=== PATIENT | female | born 1960 | race Two or more races ===

== ENCOUNTER 2017-11-10 23:52 | Emergency (ER) | payer BC ==
[2017-11-11 00:22] LABS: ADD MAN DIFF? NO
[2017-11-11 00:25] LABS: BASO # 0.1 x10^3/uL (0.0-0.2); BASO % 1 % (0-3); EOS # 0.1 x10^3/uL (0.0-0.7); EOS % 2 % (0-3); HEMATOCRIT 38.9 % (36.0-47.0); HEMOGLOBIN 13.4 g/dL (12.0-15.5); LYMPH # 2.2 x10^3/uL (1.0-4.8); LYMPH % 26 % (24-48); MEAN CORPUSCULAR HEMOGLOBIN 29 pg (25-35); MEAN CORPUSCULAR HGB CONC 34 g/dL (31-37); MEAN CORPUSCULAR VOLUME 83 fL (79-100); MONO # 0.6 x10^3/uL (0.0-1.1); MONO % 7 % (0-9); NEUT # 5.6 x10^3uL (1.8-7.7); NEUT % 65 % (31-73); PLATELET COUNT 311 x10^3/uL (140-400); RED BLOOD COUNT 4.69 x10^6/uL (3.50-5.40); RED CELL DISTRIBUTION WIDTH 14.8 % (11.5-14.5); WHITE BLOOD COUNT 8.5 x10^3/uL (4.0-11.0)
[2017-11-11] MEDS: IV NORMAL SALINE 1000ML BAG 1,000 ML IV (00:30)
[2017-11-11 00:40] LABS: ALBUMIN 3.4 g/dL (3.4-5.0); ALBUMIN/GLOBULIN RATIO 0.9 (1.0-1.7); ALK PHOS 125 U/L (46-116); ALT (SGPT) 17 U/L (14-59); ANION GAP 12 (6-14); AST (SGOT) 13 U/L (15-37); BLOOD UREA NITROGEN 13 mg/dL (7-20); BUN/CREATININE RATIO 10 (6-20); CARBON DIOXIDE 26 mmol/L (21-32); CHLORIDE 94 mmol/L (98-107); CREATININE 1.3 mg/dL (0.6-1.0); GFR 42.4; MAGNESIUM 1.5 mg/dL (1.8-2.4); POTASSIUM 4.1 mmol/L (3.5-5.1); SODIUM 132 mmol/L (136-145); TOTAL BILIRUBIN 0.5 mg/dL (0.2-1.0)
[2017-11-11 00:49] LABS: GLUCOSE 537 mg/dL (70-99)
[2017-11-11 00:49] LABS: TROPONINI < 0.017 ng/mL (0.000-0.055)
[2017-11-11] MEDS: INSULIN REGULAR 100 UNIT/ML 3ML VIAL. IV (02:02)
[2017-11-11 02:57] LABS: POC GLUCOSE 239 mg/dL (70-99)
== END 2017-11-11 04:16 | disposition home or self-care (01) ==
LOC: ER 23:52
DX: E11.65 Type 2 diabetes mellitus with hyperglycemia (principal); E78.00 Pure hypercholesterolemia, unspecified
CPT/HCPCS: 36415; 80053; 82962; 83735; 84484; 85025; 93005; 96361; 96374; 99285-25; J1815; J7030